=== PATIENT | male | born 1955 | race African-American/Black ===

== ENCOUNTER → 2017-07-21 | Outpatient (CLI) | payer BC | END | disposition home or self-care (01) | LOC: US 13:58 | DX: M79.604 Pain in right leg (principal) | CPT/HCPCS: 93971 ==

== ENCOUNTER → 2017-09-12 | Outpatient (CLI) | payer BC | END | disposition home or self-care (01) | LOC: KCIC MRI 09:02 | DX: S83.241A Other tear of medial meniscus, current injury, right knee, initial encounter (principal); S83.411A Sprain of medial collateral ligament of right knee, initial encounter; M17.11 Unilateral primary osteoarthritis, right knee; M25.461 Effusion, right knee; M22.41 Chondromalacia patellae, right knee; R60.0 Localized edema; X58.XXXA Exposure to other specified factors, initial encounter; Y93.89 Activity, other specified; Y92.89 Other specified places as the place of occurrence of the external cause; Y99.8 Other external cause status | CPT/HCPCS: 73721 ==

== ENCOUNTER 2019-04-24 14:36 | Emergency (ER) | payer BC ==
[~2019-04-24] VITALS: Ht 190.5 cm; Wt 116.1 kg
[~2019-04-24 14:36] MED LIST: ASPI-171 PO; CYAN-25 PO; HYDR-3164 PO; INUL2TAB4 PO; KETO10TA PO; MULT1TAB97 PO; TAMS0.4C97 PO
[2019-04-24] MEDS ORDERED: ONDANSETRON PF 4 MG/2 ML VIAL. IV ONE (14:45)
[2019-04-24 15:55] LABS: BASO # 0.1 x10^3/uL (0.0-0.2); BASO % 1 % (0-3); EOS # 0.2 x10^3/uL (0.0-0.7); EOS % 2 % (0-3); HEMATOCRIT 40.2 % (39.0-53.0); HEMOGLOBIN 12.9 g/dL (13.0-17.5); LYMPH # 1.7 x10^3/uL (1.0-4.8); LYMPH % 20 % (24-48); MEAN CORPUSCULAR HEMOGLOBIN 28 pg (25-35); MEAN CORPUSCULAR HGB CONC 32 g/dL (31-37); MEAN CORPUSCULAR VOLUME 86 fL (79-100); MONO # 0.9 x10^3/uL (0.0-1.1); MONO % 11 % (0-9); NEUT # 5.5 x10^3/uL (1.8-7.7); NEUT % 66 % (31-73); PLATELET COUNT 315 x10^3/uL (140-400); RED BLOOD COUNT 4.66 x10^6/uL (4.30-5.70); RED CELL DISTRIBUTION WIDTH 15.9 % (11.5-14.5); WHITE BLOOD COUNT 8.4 x10^3/uL (4.0-11.0)
[2019-04-24 16:07] LABS: CALCIUM 9.3 mg/dL (8.5-10.1); CREATININE 1.4 mg/dL (0.7-1.3); GFR 62.1
--- NOTE | 2019-04-24 16:09 | RAD ---
CHEST AP ONLY History: Chest pain Comparison: None. Findings: No consolidation or pleural effusion. Normal heart size. Impression: 1. No acute cardiopulmonary process. Electronically signed by: Denton Chacon DO (04/24/2019 4:07 PM) [facility]
[2019-04-24 16:11] LABS: ALBUMIN 3.9 g/dL (3.4-5.0); ALBUMIN/GLOBULIN RATIO 0.9 (1.0-1.7); TOTAL BILIRUBIN 0.4 mg/dL (0.2-1.0); TOTAL PROTEIN 8.1 g/dL (6.4-8.2)
[2019-04-24] MEDS ORDERED: APIX5TAB PO (17:54)
[2019-04-24 17:58] VITALS: BP 125/71
--- NOTE | 2019-04-24 17:59 | PHYS DOC ---
Past Medical History Past Medical History: Diabetes-Type II, Diverticulitis, DVT, Kidney Stone, Other Additional Past Medical Histor: PE Past Surgical History: Knee Replacement, Tonsillectomy, Other Additional Past Surgical Histo: VEIN STRIP,ORIF L FEMUR,LITHROTRIPSY,CYSTOSCOPY W/STONE REMVL,R KNEE Alcohol Use: None Drug Use: None Adult General Chief Complaint Chief Complaint: OTHER COMPLAINTS HPI HPI Patient is a 63 year old [place] male with history of knee surgery 2 months ago currently diagnosed with left leg DVT 6 days ago and pulmonary embolii morning who presents with intolerance to anticoagulations therapy. Patient was started on Xarelto approximately one week ago after diagnosis of DVT. He is been taking as prescribed but reports diarrhea after taking medication. This past weekend, the patient reported chest tightness and had an outpatient CTA this morning which confirmed the presence of pulmonary emboli. The patient was evaluated by his PCP and referred to the ED for additional evaluation. Patient denies chest pain shortness breath dizziness lightheadedness. Denies, pain. No recent antibiotics or history of C. difficile. No fever or chills. Although, the patient does report insomnia and nighttime sweats. No other acute symptoms or complaints. [] Review of Systems Review of Systems Constitutional: Denies fever or chills [] Eyes: Denies change in visual acuity, redness, or eye pain [] HENT: Denies nasal congestion or sore throat [] Respiratory: Denies cough or shortness of breath [] Cardiovascular: No additional information not addressed in HPI [] GI: Denies abdominal pain, nausea, vomiting, bloody stools or diarrhea [] : Denies dysuria or hematuria [] Musculoskeletal: Denies back pain or joint pain [] Integument: Denies rash or skin lesions [] Neurologic: Denies headache, focal weakness or sensory changes [] Endocrine: Denies polyuria or polydipsia [] All other systems were reviewed and found to be within normal limits, except as documented in this note. Current Medications Current Medications Current Medications Medications (Trade) Dose Ordered Sig/Mata Start Time Stop Time Status Last Admin Dose Admin Ondansetron HCl (Zofran) 4 mg 1X ONCE 04/24/19 14:45 04/24/19 14:46 DC Allergies Allergies Allergies Coded Allergies Type Severity Reaction Last Updated Verified No Known Drug Allergies 12/22/15 No Physical Exam Physical Exam Constitutional: Well developed, well nourished, no acute distress, non-toxic appearance. [] HENT: Normocephalic, atraumatic, bilateral external ears normal, oropharynx moist, no oral exudates, nose normal. [] Eyes: PERRLA, EOMI, conjunctiva normal, no discharge. [] Neck: Normal range of motion, no tenderness, supple, no stridor. [] Cardiovascular:Heart rate regular rhythm, no murmur [] Lungs & Thorax: Bilateral breath sounds clear to auscultation [] Abdomen: Bowel sounds normal, soft, no tenderness, no masses, no pulsatile masses. [] Skin: Warm, dry, no erythema, no rash. [] Back: No tenderness, no CVA tenderness. [] Extremities: No tenderness, no cyanosis, no clubbing, ROM intact, no edema. [] Neurologic: Alert and oriented X 3, normal motor function, normal sensory function, no focal deficits noted. [] Psychologic: Affect normal, judgement normal, mood normal. [] Current Patient Data Vital Signs Vital Signs Date Time Temp Pulse Resp B/P (MAP) Pulse Ox O2 Delivery O2 Flow Rate FiO2 04/24/19 15:15 98.5 73 18 152/89 (110) 100 Room Air 98.5 Lab Values Laboratory Tests Test 04/24/19 15:40 White Blood Count 8.4 x10^3/uL (4.0-11.0) Red Blood Count 4.66 x10^6/uL (4.30-5.70) Hemoglobin 12.9 g/dL (13.0-17.5) L Hematocrit 40.2 % (39.0-53.0) Mean Corpuscular Volume 86 fL (79-100) Mean Corpuscular Hemoglobin 28 pg (25-35) Mean Corpuscular Hemoglobin Concent 32 g/dL (31-37) Red Cell Distribution Width 15.9 % (11.5-14.5) H Platelet Count 315 x10^3/uL (140-400) Neutrophils (%) (Auto) 66 % (31-73) Lymphocytes (%) (Auto) 20 % (24-48) L Monocytes (%) (Auto) 11 % (0-9) H Eosinophils (%) (Auto) 2 % (0-3) Basophils (%) (Auto) 1 % (0-3) Neutrophils # (Auto) 5.5 x10^3/uL (1.8-7.7) Lymphocytes # (Auto) 1.7 x10^3/uL (1.0-4.8) Monocytes # (Auto) 0.9 x10^3/uL (0.0-1.1) Eosinophils # (Auto) 0.2 x10^3/uL (0.0-0.7) Basophils # (Auto) 0.1 x10^3/uL (0.0-0.2) Sodium Level 142 mmol/L (136-145) Potassium Level 4.0 mmol/L (3.5-5.1) Chloride Level 106 mmol/L (98-107) Carbon Dioxide Level 23 mmol/L (21-32) Anion Gap 13 (6-14) Blood Urea Nitrogen 15 mg/dL (8-26) Creatinine 1.4 mg/dL (0.7-1.3) H Estimated GFR (Cockcroft-Gault) 62.1 BUN/Creatinine Ratio 11 (6-20) Glucose Level 93 mg/dL (70-99) Calcium Level 9.3 mg/dL (8.5-10.1) Total Bilirubin 0.4 mg/dL (0.2-1.0) Aspartate Amino Transferase (AST) 16 U/L (15-37) Alanine Aminotransferase (ALT) 23 U/L (16-63) Alkaline Phosphatase 147 U/L (46-116) H Troponin I Quantitative < 0.017 ng/mL (0.000-0.055) EE-Kkr-G-Type Natriuretic Peptide 21 pg/mL (0-124) Total Protein 8.1 g/dL (6.4-8.2) Albumin 3.9 g/dL (3.4-5.0) Albumin/Globulin Ratio 0.9 (1.0-1.7) L Laboratory Tests 04/24/19 15:40 Laboratory Tests 04/24/19 15:40 EKG EKG [EKG: Reviewed] Radiology/Procedures Radiology/Procedures [Chest x-ray: Reviewed] Course & Med Decision Making Course & Med Decision Making Pertinent Labs and Imaging studies reviewed. (See chart for details) [Patient is essentially asymptomatic from pulmonary embolus while in the emergency department. Rather, he was referred to the ED for management of adverse drug reaction and recommendations regarding treatment of PE. Case reviewed with Dr. Gudino, internal control consultant, and Dr. Correa, shipping/receiving manager. Recommendations are for outpatient treatment with discontinuance of Xarelto and initiation of [place]us. Prescriptions provided to patient with instructions to follow-up with PCP. ] Earnestine Disclaimer Dragon Disclaimer This electronic medical record was generated, in whole or in part, using a voice recognition dictation system. Departure Departure Impression: Primary Impression: Pulmonary embolus Disposition: 01 HOME/RESIDENCE PRIOR TO ADM Condition: STABLE Patient Instructions: Pulmonary Embolus Additional Instructions: Please continue Xarelto and take 5 mg of Eliquis twice daily starting with this evenings dose. Take Imodium as needed for diarrhea and follow-up with your PCP next week for reevaluation. Return to the ED if new or worsening symptoms. Scripts Apixaban (ELIQUIS) 5 Mg Tablet 5 MG PO BID, #60 TAB Prov: GENESIS JAMES DO 04/24/19 GENESIS JAMES DO Apr 24, 2019 17:58
--- NOTE | 2019-04-25 05:48 | EKG ---
[facility] [address] [place] [address] Test Date: 2019-04-24 Test Time: 15:53:11 Pat Name: KAROLINA LANDAVERDE Department: Room: ED HOLD 10 Gender: M [employer]one Pilot: : [id number] Requested By: GENESIS JAMES Order Number: [id number] Reading MD: Zan Kim Measurements Intervals [place] Rate: 66 P: 35 OR: 156 QRS: 64 QRSD: 86 T: 59 QT: 416 QTc: 437 Interpretive Statements SINUS RHYTHM NON SPECIFIC ST-T ABNORMALITY (ELEVATION) Electronically Signed On 05-14-2019 15:29:54 STENCILER by Zan Kim
== END 2019-04-24 18:17 | disposition home or self-care (01) ==
LOC: ER 14:36 → ED HOLD 16:40 → UNDOADMIN 16:40
DX: I26.99 Other pulmonary embolism without acute cor pulmonale (principal); E11.9 Type 2 diabetes mellitus without complications; Z86.718 Personal history of other venous thrombosis and embolism; Z79.01 Long term (current) use of anticoagulants; Z87.442 Personal history of urinary calculi
CPT/HCPCS: 36415; 71045; 80053; 83880; 84484; 85025; 93005; 99285-25

== ENCOUNTER 2019-05-26 16:32 | Emergency (ER) | payer BC ==
[~2019-05-26] VITALS: Ht 190.5 cm; Wt 117.1 kg
[~2019-05-26 16:32] MED LIST changes: +APIX5TAB PO
[2019-05-26] MEDS ORDERED: MORPHINE SULFATE 4 MG/ML VIAL. IV ONE (17:45)
[2019-05-26] MEDS ORDERED: IV NORMAL SALINE 1000ML BAG 1,000 ML IV ONE (17:45)
[2019-05-26] MEDS ORDERED: ONDANSETRON PF 4 MG/2 ML VIAL. IV ONE (17:45)
[2019-05-26 17:47] LABS: BASO # 0.1 x10^3/uL (0.0-0.2); BASO % 1 % (0-3); EOS # 0.1 x10^3/uL (0.0-0.7); EOS % 2 % (0-3); HEMATOCRIT 37.6 % (39.0-53.0); HEMOGLOBIN 12.1 g/dL (13.0-17.5); LYMPH # 1.6 x10^3/uL (1.0-4.8); LYMPH % 25 % (24-48); MEAN CORPUSCULAR HEMOGLOBIN 27 pg (25-35); MEAN CORPUSCULAR HGB CONC 32 g/dL (31-37); MEAN CORPUSCULAR VOLUME 84 fL (79-100); MONO # 0.8 x10^3/uL (0.0-1.1); MONO % 13 % (0-9); NEUT # 3.7 x10^3/uL (1.8-7.7); NEUT % 59 % (31-73); PLATELET COUNT 251 x10^3/uL (140-400); RED BLOOD COUNT 4.47 x10^6/uL (4.30-5.70); RED CELL DISTRIBUTION WIDTH 16.1 % (11.5-14.5); WHITE BLOOD COUNT 6.4 x10^3/uL (4.0-11.0)
[2019-05-26 17:56] LABS: PROTHROMBIN TIME PATIENT 15.5 SEC (11.7-14.0)
[2019-05-26 18:01] LABS: CALCIUM 9.2 mg/dL (8.5-10.1); CREATININE 1.3 mg/dL (0.7-1.3); GFR 67.5; POTASSIUM 3.7 mmol/L (3.5-5.1)
[2019-05-26 18:06] LABS: ALBUMIN 3.3 g/dL (3.4-5.0); ALBUMIN/GLOBULIN RATIO 0.8 (1.0-1.7); MAGNESIUM 2.1 mg/dL (1.8-2.4); TOTAL BILIRUBIN 0.2 mg/dL (0.2-1.0); TOTAL PROTEIN 7.2 g/dL (6.4-8.2)
--- NOTE | 2019-05-26 18:28 | RAD ---
CT Abdomen and Pelvis without contrast History: Left lower quadrant pain, suprapubic pain, hematuria Technique: Noncontrast CT imaging was performed of the abdomen and pelvis. Multiplanar images are reviewed. Exposure: One or more of the following individualized dose reduction techniques were utilized for this examination: 1. Automated exposure control 2. Adjustment of the mA and/or kV according to patient size 3. Use of iterative reconstruction technique. Comparison: December 22, 2015 Findings: There is mild motion. There is no hydronephrosis. There is 4 to 5 mm inferior left renal calculus, also adjacent punctate calculus. There are a couple of punctate calculi of the inferior right kidney. No ureteral calculus is identified on either side. Accurate evaluation of abdominal visceral organs is limited without intravenous contrast. There is no obvious abnormality of the spleen, liver, or pancreas. There is no adrenal nodularity. Gallbladder is present without obvious intraluminal abnormality by CT. Accurate evaluation of bowel is limited without oral contrast. There is scattered colonic diverticulosis without significant adjacent inflammatory change change. There is no significant free air, free fluid, bowel dilatation. Appendix caliber is upper limits of normal at 0.6 cm, no adjacent inflammatory change, some internal stool density. There is fat in the inguinal canals bilaterally, no bowel. There are 3 cannulated screws of the proximal left femur. There is degree of fusion of the sacroiliac joints bilaterally anteriorly as seen previously. There is scattered plaque of the abdominal aorta and iliac arteries. Small sclerotic focus right pubic ramus stable. There is osteoarthritic change of the bilateral hips. There is multilevel thoracolumbar spondylosis. There is multilevel lumbar facet degenerative change. There is at least moderate spinal stenosis including lateral recess stenosis bilaterally at L4-5. Impression: 1. There are small bilateral renal calculi, no hydronephrosis or ureteral calculus identified. 2. There is colonic diverticulosis not associated with significant inflammatory change. 3. There is fat in the inguinal canals bilaterally, no bowel. 4. There is multilevel lumbar spondylosis and facet degenerative change. There is lateral recess stenosis bilaterally at L4-5. Electronically signed by: Moe Weller MD (05/26/2019 6:25 PM) [facility]
[2019-05-26 19:30] LABS: BILIRUBIN,URINE LARGE (NEG); CLARITY,URINE TURBID; COLOR,URINE RED; NITRITE,URINE POSITIVE (NEG); PH,URINE 5.5; PROTEIN,URINE >=300 mg/dL (NEG-TRACE)
[2019-05-26 19:34] LABS: BACTERIA,URINE FEW /HPF (0-FEW); RBC,URINE TNTC /HPF (0-2); SQUAMOUS EPITHELIAL CELL,UR OCC /LPF
[2019-05-26] MEDS ORDERED: cefTRIAXone IV Push 1 GM VIAL. IVP ONE (19:45)
[2019-05-26] MEDS ORDERED: LIDO:MAALOX 1:1 20 ML SINGLE DOSE. SWSW ONE (20:00)
[2019-05-26] MEDS ORDERED: CIPR500T94 PO (20:44)
--- NOTE | 2019-05-26 20:44 | PHYS DOC ---
Past Medical History Past Medical History: Diabetes-Type II, Diverticulitis, DVT, Kidney Stone, Other Additional Past Medical Histor: PE (JOSE LUIS SELF APRN) Past Surgical History: Knee Replacement, Tonsillectomy, Other Additional Past Surgical Histo: VEIN STRIP,ORIF L FEMUR,LITHROTRIPSY,CYSTOSCOPY W/STONE REMVL,R KNEE (JOSE LUIS SELF APRN) Additional Information: quit smoking 8-9 months ago Alcohol Use: None Drug Use: None (JOSE LUIS SELF APRN) Attending Signature I have participated in the care of this patient and I have reviewed and agree with all pertinent clinical information above including history, exam, and recommendations. (JHONATAN BURNHAM MD) Adult General Chief Complaint Chief Complaint: BLOOD IN URINE [facility] HPI Patient is a 64 year old AA male, accompanied by his , who presents to the emergency department with complaints of urinating blood for the last 4 days. Patient states he has also felt fatigued and reports having chills and hot flash es today. He denies any nausea or vomiting. Patient states he has had diarrhea for the last 2 weeks and he is currently taking Flagyl for treatment of the diarrhea. He complains of left lower quadrant abdominal pain and suprapubic pain with the onset of the symptoms. He denies any blood in his cassandra. Patient also complains of increased urinary frequency, dysuria, and left-sided low back pain. He denies any difficulty voiding. Patient denies any fever, cough, shortness of breath, numbness, tingling, weakness, headache, or vision changes. He currently rates his pain 8 or 9 out of 10 on pain scale he denies any alleviating or exacerbating factors. Patient denies any incontinence of bowel or bladder. All other ROS is neg unless otherwise noted in HPI. (JOSE LUIS SELF APRN) Review of Systems Review of Systems See Above (JOSE LUIS SELF APRN) Current Medications Current Medications Current Medications Medications (Trade) Dose Ordered Sig/Mata Start Time Stop Time Status Last Admin Dose Admin Ceftriaxone Sodium (Rocephin) 1 gm 1X ONCE 05/26/19 19:45 05/26/19 19:46 DC 05/26/19 20:02 1 GM Morphine Sulfate (Morphine Sulfate) 4 mg 1X ONCE 05/26/19 17:45 05/26/19 17:46 DC 05/26/19 17:58 4 MG Multi-Ingredient Mouthwash/Gargle (Gi Cocktail) 20 ml 1X ONCE 05/26/19 20:00 05/26/19 20:01 DC 05/26/19 20:02 20 ML Ondansetron HCl (Zofran) 4 mg 1X ONCE 05/26/19 17:45 05/26/19 17:46 DC 05/26/19 17:57 4 MG Sodium Chloride 1,000 ml @ 1,000 mls/hr 1X ONCE 05/26/19 17:45 05/26/19 18:44 DC 05/26/19 17:57 1,000 MLS/HR (JHONATAN BURNHAM MD) Allergies Allergies Allergies Coded Allergies Type Severity Reaction Last Updated Verified No Known Drug Allergies 12/22/15 No (JHONATAN BURNHAM MD) Physical Exam Physical Exam See Above Constitutional: Well developed, well nourished, no acute distress, non-toxic appearance. [] HENT: Normocephalic, atraumatic, bilateral external ears normal, nose normal. [] Eyes: PERRLA, EOMI, conjunctiva normal, no discharge. [] Neck: Normal range of motion, no stridor. [] Cardiovascular:Heart rate regular rhythm, no murmur [] Lungs & Thorax: Bilateral breath sounds clear to auscultation [] Abdomen: Bowel sounds normal, soft, LLQ and suprapubic TTP, no rebound tenderness, no guarding, no masses, no pulsatile masses. [] Skin: Warm, dry, no erythema, no rash. [] Back: No CVA tenderness. [] Extremities: No cyanosis, ROM intact, no edema. [] Neurologic: Alert and oriented X 3, no focal deficits noted. [] Psychologic: Affect normal, judgement normal, mood normal. [] (JOSE LUIS SELF APRN) Current Patient Data Vital Signs Vital Signs Date Time Temp Pulse Resp B/P (MAP) Pulse Ox O2 Delivery O2 Flow Rate FiO2 05/26/19 20:45 64 15 153/69 (97) 98 Room Air 05/26/19 17:10 98.8 98.8 (JHONATAN BURNHAM MD) Lab Values Laboratory Tests Test 05/26/19 17:30 05/26/19 19:15 White Blood Count 6.4 x10^3/uL (4.0-11.0) Red Blood Count 4.47 x10^6/uL (4.30-5.70) Hemoglobin 12.1 g/dL (13.0-17.5) L Hematocrit 37.6 % (39.0-53.0) L Mean Corpuscular Volume 84 fL (79-100) Mean Corpuscular Hemoglobin 27 pg (25-35) Mean Corpuscular Hemoglobin Concent 32 g/dL (31-37) Red Cell Distribution Width 16.1 % (11.5-14.5) H Platelet Count 251 x10^3/uL (140-400) Neutrophils (%) (Auto) 59 % (31-73) Lymphocytes (%) (Auto) 25 % (24-48) Monocytes (%) (Auto) 13 % (0-9) H Eosinophils (%) (Auto) 2 % (0-3) Basophils (%) (Auto) 1 % (0-3) Neutrophils # (Auto) 3.7 x10^3/uL (1.8-7.7) Lymphocytes # (Auto) 1.6 x10^3/uL (1.0-4.8) Monocytes # (Auto) 0.8 x10^3/uL (0.0-1.1) Eosinophils # (Auto) 0.1 x10^3/uL (0.0-0.7) Basophils # (Auto) 0.1 x10^3/uL (0.0-0.2) Prothrombin Time 15.5 SEC (11.7-14.0) H Prothrombin Time INR 1.3 (0.8-1.1) H Activated Partial Thromboplast Time 34 SEC (24-38) Sodium Level 144 mmol/L (136-145) Potassium Level 3.7 mmol/L (3.5-5.1) Chloride Level 107 mmol/L (98-107) Carbon Dioxide Level 28 mmol/L (21-32) Anion Gap 9 (6-14) Blood Urea Nitrogen 9 mg/dL (8-26) Creatinine 1.3 mg/dL (0.7-1.3) Estimated GFR (Cockcroft-Gault) 67.5 BUN/Creatinine Ratio 7 (6-20) Glucose Level 96 mg/dL (70-99) Lactic Acid Level 1.7 mmol/L (0.4-2.0) Calcium Level 9.2 mg/dL (8.5-10.1) Magnesium Level 2.1 mg/dL (1.8-2.4) Total Bilirubin 0.2 mg/dL (0.2-1.0) Aspartate Amino Transferase (AST) 18 U/L (15-37) Alanine Aminotransferase (ALT) 19 U/L (16-63) Alkaline Phosphatase 106 U/L (46-116) Total Protein 7.2 g/dL (6.4-8.2) Albumin 3.3 g/dL (3.4-5.0) L Albumin/Globulin Ratio 0.8 (1.0-1.7) L Lipase 172 U/L (73-393) Urine Collection Type Unknown Urine Color Red Urine Clarity Turbid Urine pH 5.5 Urine Specific [place] 1.025 Urine Protein >=300 mg/dL (NEG-TRACE) Urine Glucose (UA) Negative mg/dL (NEG) Urine Ketones (Stick) 15 mg/dL (NEG) Urine Blood Large (NEG) Urine Nitrite Positive (NEG) Urine Bilirubin Large (NEG) Urine Urobilinogen Dipstick 1.0 mg/dL (0.2 mg/dL) Urine Leukocyte Esterase Moderate (NEG) Urine RBC Tntc /HPF (0-2) Urine WBC 1-4 /HPF (0-4) Urine Squamous Epithelial Cells Occ /LPF Urine Bacteria Few /HPF (0-FEW) Urine Mucus Mod /LPF Laboratory Tests 05/26/19 17:30 Laboratory Tests 05/26/19 17:30 Microbiology 05/26/19 Urine Culture - Final, Complete 05/26/19 Urine Culture Result 1 (PATIENCE) - Final, Complete (JHONATAN BURNHAM MD) EKG EKG [] (JOSE LUIS SELF APRN) Radiology/Procedures Radiology/Procedures [] (JOSE LUIS SELF APRN) Course & Med Decision Making Course & Med Decision Making Pertinent Labs and Imaging studies reviewed. (See chart for details) 1950- while discussing the results of the urinalysis with the patient and his . The patient mentioned that he had been having a burning sensation in his epigastric area recently. He states that the only medication he took this mor cj was his Eliquis. He did not take his omeprazole. Patient states that he has an appointment coming up here shortly with a GI specialist for this burning sensation in his abdomen. A GI cocktail was ordered and a lipase was also ordered. CBC revealed a hemoglobin of 12.1, hematocrit of 37.6 otherwise unremarkable, CMP revealed: An albumin of 3.3, and in an albumin globulin ratio of 0.8 otherwise was unremarkable; patient's PT was 15.5, INR was 1.3, APTT was 34 Patient's urine was positive for nitrates and had a great amount of blood and red blood cells present. Patient was given a dose of 1 g of Rocephin IV in the ER. A prescription was written for ciprofloxacin 500 mg by mouth twice a day 3 days. The patient was instructed to increase clear fluids, avoid bladder irritants, and follow-up with his primary care doctor this week to have his urine rechecked. The patient and his verbalized an understanding of home care, medications, follow-up, and return to ED instructions and were in agreement with the plan of care. [] (JOSE LUIS SELF APRN) Dragon Disclaimer Dragon Disclaimer This electronic medical record was generated, in whole or in part, using a voice recognition dictation system. (JOSE LUIS SELF APRN) Departure Departure Impression: Primary Impression: Urinary tract infection Additional Impression: Pain, abdominal, nonspecific Disposition: 01 HOME, SELF-CARE Condition: STABLE Referrals: ADRIEL CHANG DO (PCP) Patient Instructions: Abdominal Pain (Nonspecific), Urinary Tract Infection Additional Instructions: Fill prescription(s) and use as directed. Avoid bladder irritants such as caffei ne, carbonation, and spicy foods. Increase clear fluids. Follow up with your primary care doctor in 1-2 days. Follow up with GI specialist as planned. Return to the ER if symptoms worsen. Scripts Ciprofloxacin Hcl (CIPRO) 500 Mg Tablet 1 TAB PO BID for 3 Days, #6 TAB 0 Refills Prov: JOSE LUIS SELF APRN 05/26/19 Problem Qualifiers Primary Impression: Urinary tract infection Urinary tract infection type: acute cystitis Hematuria presence: with hematuria Qualified Codes: N30.01 - Acute cystitis with hematuria JOSE LUIS SELF APRN May 26, 2019 20:44 JHONATAN BURNHAM MD May 29, 2019 18:20
[2019-05-26 20:45] VITALS: BP 153/69
== END 2019-05-26 21:02 | disposition home or self-care (01) ==
LOC: ER 16:32
DX: N30.01 Acute cystitis with hematuria (principal); R10.13 Epigastric pain; E11.9 Type 2 diabetes mellitus without complications; Z90.89 Acquired absence of other organs; Z96.651 Presence of right artificial knee joint; Z87.891 Personal history of nicotine dependence; Z87.442 Personal history of urinary calculi; Z86.718 Personal history of other venous thrombosis and embolism; Z86.711 Personal history of pulmonary embolism
CPT/HCPCS: 36415; 74176; 80053; 81001; 83605; 83690; 83735; 85025; 85610; 85730; 87086; 96374; 96375; 99285; J0696; J2270; J2405; J7030